=== PATIENT | male | born 1980 | race Caucasian/White ===

== ENCOUNTER 2020-05-31 17:27 | Emergency (ER) | payer BC, OTHER ==
[~2020-05-31] VITALS: Ht 177.8 cm; Wt 83.9 kg
[~2020-05-31 17:27] MED LIST: APIX5TAB3 PO; PANT-47 PO
[2020-05-31 22:38] VITALS: BP 131/76
[2020-05-31] MEDS ORDERED: sulfamethoxazole/trimethoprim DS (800/160mg) tablet PO ONE (23:00)
[2020-05-31] MEDS ORDERED: cephalexin 500mg capsule PO ONE (23:00)
[2020-05-31] MEDS ORDERED: CEPH-585 PO (23:02)
[2020-05-31] MEDS ORDERED: SULF1TAB49 PO (23:02)
== END 2020-05-31 23:22 | disposition home or self-care (01) ==
LOC: ER 17:28
DX: L03.114 Cellulitis of left upper limb (principal); F11.90 Opioid use, unspecified, uncomplicated; K21.9 Gastro-esophageal reflux disease without esophagitis; F15.90 Other stimulant use, unspecified, uncomplicated; Z56.0 Unemployment, unspecified; Z88.8 Allergy status to other drugs, medicaments and biological substances; Z79.2 Long term (current) use of antibiotics; Z79.899 Other long term (current) drug therapy
CPT/HCPCS: 76882; 99284

== ENCOUNTER 2020-06-07 11:08 | Emergency (ER) | payer OTHER ==
[~2020-06-07] VITALS: Ht 177.8 cm; Wt 86.4 kg
[~2020-06-07 11:08] MED LIST changes: +CEPH-585 PO; +SULF1TAB49 PO
[2020-06-07] MEDS ORDERED: LIDOcaine 1% 30ml preserv. free vial SQ STA (11:38)
[2020-06-07] MEDS ORDERED: CEPH-585 PO (11:54)
--- NOTE | 2020-06-07 12:00 | NUR ---
wound lidaocained, lanced and dressed by franklin garcia prior to nurse assessment
[2020-06-07] MEDS ORDERED: TETanus/Pertussis (Acell)/Diphther VAC/PF (Tdap-Adult) 0.5ml syringe IMVAC ONE (12:10)
[2020-06-07 12:30] VITALS: BP 110/65
== END 2020-06-07 12:34 | disposition home or self-care (01) ==
LOC: ER 11:08
DX: L02.414 Cutaneous abscess of left upper limb (principal); M79.632 Pain in left forearm; K21.9 Gastro-esophageal reflux disease without esophagitis; F15.90 Other stimulant use, unspecified, uncomplicated; F11.90 Opioid use, unspecified, uncomplicated; F19.90 Other psychoactive substance use, unspecified, uncomplicated; Z20.3 Contact with and (suspected) exposure to rabies; Z60.2 Problems related to living alone; Z56.0 Unemployment, unspecified; Z88.6 Allergy status to analgesic agent; Z79.2 Long term (current) use of antibiotics; Z79.899 Other long term (current) drug therapy
CPT/HCPCS: 10060; 90471; 90715; 99283